=== PATIENT | male | born 1990 | race Caucasian/White ===

== ENCOUNTER 2021-02-26 16:11 | Emergency (ER) | payer SELFPAY ==
[~2021-02-26] VITALS: Ht 180.3 cm; Wt 80.7 kg
--- NOTE | 2021-02-26 16:11 | NUR ---
PT BROUGHT TO BED 10 VIA [facility]
[2021-02-26 16:15] VITALS: BP 148/86
--- NOTE | 2021-02-26 16:18 | NUR ---
31 Y/O MALE BIBA FROM THE STREETS. PER EMS WAS FOUND IN THE SIDEWALK FROM HEROIN OVERDOSE. WAS GIVEN 4MG NARCAN INTRANASAL. DENIES ANY PAIN, N/V. MEDHX: DENIES NKA
--- NOTE | 2021-02-26 16:22 | NUR ---
Dr. garner bedside evaluating pt
[2021-02-26 16:48] VITALS: BP 148/86
--- NOTE | 2021-02-26 16:48 | NUR ---
Patient discharged with v/s stable. Written and verbal after care instructions given and explained. Patient alert, oriented and verbalized understanding of instructions. Ambulatory with steady gait. All questions addressed prior to discharge. ID band removed. Patient advised to follow up with PMD. Opportunity to ask questions provided and answered. Bus pass provided.
== END 2021-02-26 16:48 | disposition home or self-care (01) ==
LOC: MED 16:11
DX: T40.2X4A Poisoning by other opioids, undetermined, initial encounter (principal); F17.210 Nicotine dependence, cigarettes, uncomplicated; Y92.89 Other specified places as the place of occurrence of the external cause
CPT/HCPCS: 99283